=== PATIENT | female | born 1975 | race Caucasian/White ===

== ENCOUNTER → 2016-10-27 | Outpatient (CLI) | payer BC | END | disposition home or self-care (01) | LOC: RAD.S 11:20 | DX: Z12.31 Encounter for screening mammogram for malignant neoplasm of breast (principal); R92.8 Other abnormal and inconclusive findings on diagnostic imaging of breast ==

== ENCOUNTER → 2016-10-31 | Outpatient (CLI) | payer BC | END | disposition home or self-care (01) | LOC: RAD.S 10-28 08:12 | DX: R92.8 Other abnormal and inconclusive findings on diagnostic imaging of breast (principal) ==